=== PATIENT | male | born 1980 | race Caucasian/White ===

== ENCOUNTER 2018-04-30 21:34 | Inpatient (IN) | payer BC ==
[~2018-04-30] VITALS: Ht 172.7 cm; Wt 113.9 kg
--- NOTE | 2018-04-30 21:40 | NUR ---
PT BIB [facility]. COMP OF "MY HEART WAS RACING OUT OF MY CHEST". NO DIZZINESS NOTED. NO SOB NOTED. NO CHEST PAIN NOTED. NO ACUTE DISTRESS AT THIS TIME. PT AOX4. AMBULATORY W,ASSISTANCE. AWAITING MD YAO.
--- NOTE | 2018-04-30 21:41 | NUR ---
IV PRESENT UPON ARRIVAL, #18 G, LEFT HAND, FLUSHED WITH NS, PATENT AND INTACT, NO S/S OF INFILTRATION OR PHLEBITIS. TECH AT BEDSIDE FOR EKG, CXR TAKEN, URINE COLLECTED AND SENT TO LAB
[2018-04-30 22:52] LABS: BASOPHILS # (AUTO) 0.1 /CMM (0.0-0.2); BASOPHILS % (AUTO) 0.7 % (0.0-2.0); EOSINOPHILS % (AUTO) 1.7 % (0.0-6.0); HEMATOCRIT 44 % (39-51); LYMPHOCYTES # (AUTO) 2.4 /CMM (0.8-4.8); LYMPHOCYTES % (AUTO) 28.2 % (20.0-44.0); MEAN CORPUSCULAR HGB CONC 34 g/dl (31.0-36.0); MEAN CORPUSCULAR VOLUME 82 fL (80-96); MONOCYTES # (AUTO) 0.7 /CMM (0.1-1.30); MONOCYTES % (AUTO) 7.7 % (2.0-12.0); NEUTROPHILS # (AUTO) 5.3 /CMM (1.8-8.9); NEUTROPHILS % (AUTO) 61.7 % (43.0-81.0); PLATELET COUNT (AUTO) 260 /CMM (150-450); RED BLOOD CELL COUNT(AUTO) 5.36 MIL/uL (4.5-6.0); WHITE BLOOD COUNT (AUTO) 8.6 K/uL (4.3-11.0)
[2018-04-30 22:59] LABS: CALCIUM, SERUM 9.1 mg/dL (8.5-10.1); CARBON DIOXIDE 30 mmol/L (21-32); CHLORIDE 101 mmol/L (98-107); CREATININE 1.1 mg/dL (0.6-1.3); GLUCOSE 90 mg/dL (74-106); SODIUM SERUM 140 mmol/L (136-145); UREA NITROGEN, BLOOD 13 mg/dL (7-18)
--- NOTE | 2018-04-30 23:00 | NUR ---
PATIENT IN BED, DENIES PAIN/DISCOMFORT AT THIS TIME, UPDATED REGARDING PLAN OF CARE, WITH VERBALIZATION OF UNDERSTANDING
--- NOTE | 2018-05-01 00:20 | NUR ---
CALLED DR. NUNO FOR ADMISSION; MESSAGE LEFT.
--- NOTE | 2018-05-01 00:50 | NUR ---
DR. NUNO CALLED AGAIN; 2ND TIME. LEFT MESSAGE
--- NOTE | 2018-05-01 00:54 | NUR ---
REPORT GIVEN TO NURSE HENDRICKS FOR CONTINUITY OF CARE, ROOM 107, TELEMETRY 1ST FLOOR
--- NOTE | 2018-05-01 01:20 | NUR ---
DR. NUNO CALLED 3RD TIME; LEFT MESSAGE.
--- NOTE | 2018-05-01 01:43 | NUR ---
LAST CALL NURYS KIM DR. MESSAGE LEFT. LESLY DOVER NOTIFIED.
[2018-05-01] MEDS ORDERED: ACETAMINOPHEN 325 MG TABLET PO PRN (02:30)
[2018-05-01] MEDS ORDERED: ONDANSETRON HCL/PF 4 MG/2 ML VIAL IVP PRN (02:30)
[2018-05-01] MEDS ORDERED: HYDROCODONE/APAP 5/325MG 1 EACH TABLET PO PRN (02:30)
--- NOTE | 2018-05-01 02:30 | NUR ---
PATIENT TRANSPORTED TO TELEMETRY 1ST FLOOR, ROOM 107 BY RN AND EMT VIA ACLS PROTOCOL, TOLERATED TRANSFER WELL. CARE ENDORSED TO NURSE HENDRICKS
[2018-05-01 02:53] VITALS: BP 134/88
--- NOTE | 2018-05-01 03:11 | NUR ---
INSTRUMENTATION CONTROLS ENGINEER NOTE RECEIVED PT 37 YEARS OLD FROM ER WITH THE DX OF SVT BY DR GARRETT. PT IS A/O X 4, NO SOB, NO DISTRESS OR DISCOMFORT NOTED. DENIES PAIN. ON TELE MONITOR SR. LT HAND # 18 G SL INTACT AND PATENT. VSS. NO SKIN ISSUES NOTED. ORIENTED THE PT TO HIS ROOM. SIDE RAILS UP X 3 AND CALL LIGHT WITHIN REACH. CONTINUE TO MONITOR HIM.
--- NOTE | 2018-05-01 06:23 | NUR ---
LITERARY AGENT NOTE PT IN BED ASLEEP, EASILY AROUSABLE. NO DISTRESS OR DISCOMFORT NOTED. DENIES PAIN. ON TELE SR HR 70. ALL NEEDS ATTENDED. SIDE RAILS UP X2 AND CALL LIGHT WITHIN REACH. WILL ENDORSE TO DAY SHIFT NURSE FOR CONTINUE TO CARE.
[2018-05-01 06:43] LABS: BASOPHILS # (AUTO) 0.1 /CMM (0.0-0.2); BASOPHILS % (AUTO) 0.7 % (0.0-2.0); EOSINOPHILS % (AUTO) 1.5 % (0.0-6.0); HEMATOCRIT 40 % (39-51); HEMOGLOBIN 13.6 g/dL (13.5-17.5); LYMPHOCYTES # (AUTO) 2.9 /CMM (0.8-4.8); LYMPHOCYTES % (AUTO) 32.5 % (20.0-44.0); MEAN CORPUSCULAR HGB CONC 34 g/dl (31.0-36.0); MEAN CORPUSCULAR VOLUME 82 fL (80-96); MONOCYTES # (AUTO) 0.8 /CMM (0.1-1.30); MONOCYTES % (AUTO) 8.7 % (2.0-12.0); NEUTROPHILS % (AUTO) 56.6 % (43.0-81.0); PLATELET COUNT (AUTO) 237 /CMM (150-450); RED BLOOD CELL COUNT(AUTO) 4.83 MIL/uL (4.5-6.0); WHITE BLOOD COUNT (AUTO) 8.9 K/uL (4.3-11.0)
[2018-05-01 06:56] LABS: ALANINE AMINOTRANSFERASE 53 U/L (12-78); ALBUMIN 3.4 g/dL (3.4-5.0); ALKALINE PHOSPHATASE 82 U/L (46-116); ASPARTATE AMINOTRANSFERASE 26 U/L (15-37); BILIRUBIN,TOTAL 0.5 mg/dL (0.2-1.0); CALCIUM, SERUM 8.7 mg/dL (8.5-10.1); CARBON DIOXIDE 29 mmol/L (21-32); CHLORIDE 103 mmol/L (98-107); CREATININE 0.9 mg/dL (0.6-1.3); GLUCOSE 88 mg/dL (74-106); MAGNESIUM 1.9 mg/dL (1.8-2.4); PHOSPHORUS 3.8 mg/dL (2.5-4.9); POTASSIUM 3.8 mmol/L (3.5-5.1); SODIUM SERUM 139 mmol/L (136-145); TOTAL PROTEIN, SERUM 7.2 g/dL (6.4-8.2); UREA NITROGEN, BLOOD 13 mg/dL (7-18)
[2018-05-01 07:52] LABS: CHOLESTEROL 150 mg/dL (<200); HDL CHOLESTEROL 44 mg/dL (40-60); LDL 105 mg/dL (0-99); TRIGLYCERIDES 50 mg/dL (30-150)
[2018-05-01 08:00] VITALS: BP 125/79
[2018-05-01] MEDS ORDERED: ALBU8.5H8 IH (08:57)
[2018-05-01] MEDS ORDERED: BUDE10.2 IH (08:57)
[2018-05-01] MEDS ORDERED: ASPIRIN 81 MG TAB.CHEW PO SCH (09:00)
[2018-05-01] MEDS ORDERED: METOPROLOL TARTRATE 25 MG TABLET PO SCH (09:00)
[2018-05-01 12:00] VITALS: BP 124/78
--- NOTE | 2018-05-01 16:27 | NUR ---
Patient resides locally with family. He is ambulatory and independent with adl's, working and driving. Has good family support. His pcp is Dr. Melinda Newton. Plan to dc home today. Addendum: 05/01/18 at 1627 by LENKA CHENG RN Amended: Links added.
--- NOTE | 2018-05-01 17:35 | NUR ---
Charge nurse discharging patient at this time. Pt AAOx4 with ABc's intact. Ambulatory with steady gait. IV removed with catheter tip intact. Gauze and tape placed. pt tolerated well.
== END 2018-05-01 18:15 | disposition home or self-care (01) | DRG 310 ==
LOC: EDSEX 21:36 → ER 21:36 → TELE1 05-01 00:44 → MEDSG1 05-01 16:10
PROVIDERS: ADMIT Internal Medicine; ATTEND Internal Medicine
DX: I47.1 Supraventricular tachycardia (principal); J45.909 Unspecified asthma, uncomplicated; Z88.0 Allergy status to penicillin; E66.9 Obesity, unspecified; Z68.38 Body mass index [BMI] 38.0-38.9, adult; Z82.49 Family history of ischemic heart disease and other diseases of the circulatory system; Z83.3 Family history of diabetes mellitus
CPT/HCPCS: 36415; 71045-TC; 80048-TC; 80053-TC; 80061-TC; 80305; 83735-TC; 84100-TC; 84443-TC; 84484-TC; 85025-TC; 85730-TC; 87081-TC; G0378

== ENCOUNTER 2022-09-24 08:17 | Emergency (ER) | payer BC, OTHER ==
[~2022-09-24] VITALS: Ht 172.7 cm; Wt 108.9 kg
[~2022-09-24 08:17] MED LIST: ALBU8.5H8 IH; BUDE10.2 IH
[2022-09-24 08:28] VITALS: BP 154/98
--- NOTE | 2022-09-24 08:57 | NUR ---
Patient discharged to home in stable condition. Verbal after care instructions given. Patient verbalizes understanding of instruction.
== END 2022-09-24 08:58 | disposition home or self-care (01) ==
LOC: ER 08:24
DX: T18.8XXA Foreign body in other parts of alimentary tract, initial encounter (principal); J45.909 Unspecified asthma, uncomplicated; Z60.2 Problems related to living alone; Z79.899 Other long term (current) drug therapy; X58.XXXA Exposure to other specified factors, initial encounter; Y93.89 Activity, other specified; Y92.89 Other specified places as the place of occurrence of the external cause; Y99.8 Other external cause status